=== PATIENT | male | born 1935 | race Caucasian/White ===

== ENCOUNTER 2017-01-25 00:16 | Emergency (ER) | payer MEDICARE ==
[2017-01-25] MEDS ORDERED: Ibuprofen TAB* 600 MG PO ONE (01:59)
[2017-01-25 02:53] LABS: Urine Bacteria Absent (Absent); Urine Bilirubin Negative (Negative); Urine Glucose Negative (Negative); Urine Nitrite Negative (Negative)
[2017-01-25] MEDS ORDERED: Sulfamethox/Trimethoprim DS 800/160* TAB PO ONE (03:40)
[2017-01-25 07:29] VITALS: BP 117/69
--- NOTE | 2017-01-25 07:48 | RAD ---
INDICATION: Cough and fever COMPARISON: Chest x-ray August 13, 2015 TECHNIQUE: PA and lateral dual-energy views were obtained. FINDINGS: Bones/Soft Tissues: There are no acute bony findings. Cardiomediastinal: The cardiomediastinal silhouette is normal. Lungs: There are no acute infiltrates. There are mild chronic basilar interstitial changes Pleura: There are no pleural effusions. Other: None IMPRESSION: No active disease.
--- NOTE | 2017-01-25 21:06 | ED ---
Shmuel Pedroza Billy, scribed for Ramon Andrea MD on 01/25/17 at 0140 . HPI Febrile Illness - HPI Summary HPI Summary: Patient is a 81 year-old male coming to [facility] for evaluation of 2 days of fever , tmax 103F. Fever improved with tylenol. He also reports chills and shaking with his fever. He also has a mild cough, but denies any other symptoms such as rhinorrhea, sore throat, myalgias, N/V/D, or urinary symptoms. His states that the patient has been sleeping and resting throughout the day for these last few days. - History of Current Complaint Chief Complaint: EDFever Time Seen by Provider: 01/25/17 00:42 Hx Obtained From: Patient Onset/Duration: Started Days Ago Timing: Intermittent Temperature: 103 F Initial Severity: Moderate Current Severity: Moderate Aggravating Factors: Nothing Alleviating Factors: OTC Medicine Associated Signs and Symptoms: Chills, Other: - shaking - Allergy/Home Medications Allergies/Adverse Reactions: Allergies Allergy/AdvReac Type Severity Reaction Status Date / Time No Known Allergies Allergy Verified 03/24/15 18:14 PMH/Surg Hx/FS Hx/Imm Hx Endocrine/Hematology History: Denies: Hx Diabetes Cardiovascular History: Denies: Hx Congestive Heart Failure - Surgical History Surgery Procedure, Year, and Place: Total hip - left, October 2013 Infectious Disease History: No Infectious Disease History: Denies: Traveled Outside the [place] in Last 30 Days - Family History Family History: Notable for uterine cancer in his sister, Parkinson's in his father, and Alzheimer's in his mother. - Social History Alcohol Use: Weekly Substance Use Type: Reports: None Smoking Status (MU): Never Smoked Tobacco Review of Systems Positive: Fever, Chills, Other - shakes Negative: Erythema Negative: Sore Throat Negative: Chest Pain Positive: Cough. Negative: Shortness Of Breath Negative: Vomiting, Nausea Negative: Arthralgia, Myalgia, Edema Negative: Rash All Other Systems Reviewed And Are Negative: Yes Physical Exam - Summary Physical Exam Summary: Constitutional: Well-developed, Well-nourished, Alert. (-) Distressed Skin: Warm, Dry HENT: Normocephalic; Atraumatic Eyes: Conjunctiva normal Neck: Musculoskeletal ROM normal neck. (-) JVD, (-) Stridor, (-) Tracheal deviation Cardio: Rhythm regular, rate normal, Heart sounds normal; Intact distal pulses; The pedal pulses are 2+ and symmetric. Radial pulses are 2+ and symmetric. (-) Murmur Pulmonary/Chest wall: Effort normal. Positive rhonchi in the bases. Abd: Soft, (-) Tenderness, (-) Distension, (-) Guarding, (-) Rebound Musculoskeletal: (-) Edema Lymph: (-) Cervical adenopathy Neuro: Alert, Oriented x3 Psych: Mood and affect Normal Triage Information Reviewed: Yes Vital Signs On Initial Exam: Initial Vitals Temp Pulse Resp BP Pulse Ox 99.3 F 115 15 112/81 96 01/25/17 00:17 01/25/17 00:17 01/25/17 00:17 01/25/17 00:17 01/25/17 00:17 Vital Signs Reviewed: Yes Diagnostics - Vital Signs Vital Signs Temp Pulse Resp BP Pulse Ox 01/25/17 00:20 99.3 F 110 15 112/81 96 01/25/17 00:17 99.3 F 115 15 112/81 96 - Laboratory Lab Statement: Any lab studies that have been ordered have been reviewed, and results considered in the medical decision making process. - Radiology CXR Xray Interpretation: No Acute Changes Radiology Interpretation Completed By: ED Physician - No significant change compared to previous CXR in 2015. Re-Evaluation - Re-Evaluation First Eval Re-Evaluation Time: 02:40 Comment: CXR results discussed. Second Eval Re-Evaluation Time: 03:43 Comment: Labs reviewed. Course/Dx - Course Assessment/Plan: 81 year-old male coming to the ED for evaluation of fever. In the ED course, patient was given ibuprofen and bactrim. UA positive for UTI. CXR shows no active disease. Patient will be discharged with bactrim to follow up with PCP. - Diagnoses Provider Diagnoses: UTI (urinary tract infection) Discharge - Discharge Plan Condition: Stable Disposition: HOME Prescriptions: Sulfamethox/Trimethoprim DS* [Bactrim DS 800/160 TAB*] 1 tab PO BID #14 tab Patient Education Materials: Urinary Tract Infection in Men (ED) Referrals: Hang Pringle MD [Primary Care Provider] - 1 Day The documentation as recorded by the Shmuel park Billy accurately reflects the service I personally performed and the decisions made by me, Ramon Andrea MD.
== END 2017-01-25 04:00 | disposition home or self-care (01) ==
LOC: ED 00:16
DX: N39.0 Urinary tract infection, site not specified (principal); R50.9 Fever, unspecified; R05 Cough
CPT/HCPCS: 71020; 81003; 81015; 87086; 87502; 99282; A9270-GY

== ENCOUNTER 2018-02-25 20:06 | Inpatient (IN) | payer MEDICARE ==
[2018-02-25] MEDS ORDERED: NS 0.9% 1000 ML*IV.FLUID IV ONE (20:36)
[2018-02-25 20:54] LABS: ABS Basophils 0.1 10^3/ul (0-0.2); ABS Eosinophils 0 10^3/ul (0-0.6); ABS Lymphocytes 0.6 10^3/ul (1.0-4.8); ABS Neutrophils 17.2 10^3/ul (1.5-7.7); ABS Nucleated RBC 0 10^3/ul; Eosinophil % 0.1 % (0-6); Hematocrit 41 % (42-52); Hemoglobin 14.2 g/dl (14.0-18.0); Lymphocyte % 3.3 % (25-47); Mean Corpuscular HGB Conc 35 g/dl (31-36); Mean Corpuscular Hemoglobin 33 pg (27-31); Mean Corpuscular Volume 96 fL (80-94); Mean Platelet Volume 7.3 um3 (7.4-10.4); Nucleated Red Blood Cells % 0; Platelet Count 256 10^3/ul (150-450); Red Cell Distribution Width 14 % (10.5-15)
[2018-02-25 20:59] LABS: INR 1.17 (0.77-1.02)
[2018-02-25 21:11] LABS: EGFR Non-African American 91.7 (>60)
--- NOTE | 2018-02-25 21:38 | RAD ---
Indication: Fever. 2 views of the chest demonstrates no mediastinal shift. Heart is of normal size and configuration. Linear discoid atelectasis or scarring in both lung bases are noted. When compared to previous exam of January 25, 2017 no significant change is noted. IMPRESSION: Bibasilar scarring or atelectasis without evidence of pneumonia.
[2018-02-25 22:33] LABS: Urine Appearance Cloudy; Urine Blood Negative (Negative); Urine Color Yellow; Urine Ketones Negative (Negative); Urine Protein Negative (Negative); Urine Specific Gravity 1.027 (1.010-1.030); Urine Urobilinogen Negative (Negative)
[2018-02-25] MEDS ORDERED: Acetaminophen TAB* 325 MG PO ONE (23:01)
--- NOTE | 2018-02-25 23:19 | ED ---
Martha Pedroza Gabriel, scribed Haja Stout MD on 02/25/18 at 2037 . HPI Febrile Illness - HPI Summary HPI Summary: This patient is a 82 year old M presenting to [facility] accompanied by his with a chief complaint of a fever that began this morning that is getting worse despite taking Tylenol all day. 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 He has been in bed all day and has had decreased appetite. Patients reports incontinence and flat affect. Patient denies FERGUSON, cold symptoms, cough, rhinorrhea, ABD pain, rashes, back pain, recent travel, and vomiting. No hx of CAD or cancer. No h/o tick bite. 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 - Allergy/Home Medications Allergies/Adverse Reactions: Allergies Allergy/AdvReac Type Severity Reaction Status Date / Time No Known Allergies Allergy Verified 02/25/18 20:54 PMH/Surg Hx/FS Hx/Imm Hx Endocrine/Hematology History: Denies: Hx Diabetes Cardiovascular History: Reports: Hx Hypertension - CONTROLLED WELL W/MEDS Denies: Hx Congestive Heart Failure Respiratory History: Denies: Hx Chronic Obstructive Pulmonary Disease (COPD) GI History: Denies: Hx Gastroesophageal Reflux Disease Psychiatric History: Denies: Hx Autism - Surgical History Surgery Procedure, Year, and Place: Total hip - left, October 2013 Infectious Disease History: No Infectious Disease History: Denies: Traveled Outside the [place] in Last 30 Days - Family History Known Family History: Negative: Hypertension, Renal Disease, Respiratory Disease Family History: Notable for uterine cancer in his sister, Parkinson's in his father, and Alzheimer's in his mother. - Social History Lives: With Family Alcohol Use: Weekly Substance Use Type: Reports: None Hx Tobacco Use: No Smoking Status (MU): Never Smoked Tobacco Review of Systems Positive: Fever, Fatigue, Other - decreased appetite Negative: Nasal Discharge Negative: Cough Negative: Abdominal Pain, Vomiting Positive: incontinence Musculoskeletal: Negative - back pain Negative: Rash Neurological: Other Negative: Headache Psychological: Other - flat affect All Other Systems Reviewed And Are Negative: Yes Physical Exam - Summary Physical Exam Summary: Appearance: Well-appearing, Well-nourished, lying in bed comfortably, pt does not appear altered Skin: Warm, dry, no obvious rash Eyes: sclera anicteric, no conjunctiva pallor, ENT: mucous membranes moist, pharynx appears normal, Neck: Supple, nontender Respiratory: Clear to auscultation, no signs of respiratory distress Cardiovascular: Normal S1, S2. No murmurs. Normal distal pulses in tibial and radial bilaterally. Abdomen: Soft, nontender, normal active bowel sounds present Musculoskeletal: Normal, Strength/ROM Intact Neurological: A&Ox3, awake and alert, mentation is normal, speech is fluent and appropriate Psychiatric: affect is normal, does not appearing anxious or depressed Triage Information Reviewed: Yes Vital Signs On Initial Exam: Initial Vitals Temp Pulse Resp BP Pulse Ox 104.5 F 112 18 128/69 93 02/25/18 20:13 02/25/18 20:13 02/25/18 20:13 02/25/18 20:13 02/25/18 20:13 Vital Signs Reviewed: Yes Diagnostics - Vital Signs Vital Signs Temp Pulse Resp BP Pulse Ox 02/25/18 20:13 104.5 F 112 18 128/69 93 - Laboratory Lab Results: Lab Results 02/25/18 02/25/18 02/25/18 Range/Units 20:48 20:48 20:48 WBC 19.0 H (3.5-10.8) 10^3/ul RBC 4.30 (4.0-5.4) 10^6/ul Hgb 14.2 (14.0-18.0) g/dl Hct 41 L (42-52) % MCV 96 H (80-94) fL MCH 33 H (27-31) pg MCHC 35 (31-36) g/dl RDW 14 (10.5-15) % Plt Count 256 (150-450) 10^3/ul MPV 7.3 L (7.4-10.4) um3 Neut % (Auto) 90.5 H (38-83) % Lymph % (Auto) 3.3 L (25-47) % Bowie % (Auto) 5.3 (0-7) % Eos % (Auto) 0.1 (0-6) % Baso % (Auto) 0.8 (0-2) % Absolute Neuts (auto) 17.2 H (1.5-7.7) 10^3/ul Absolute Lymphs (auto) 0.6 L (1.0-4.8) 10^3/ul Absolute Monos (auto) 1.0 H (0-0.8) 10^3/ul Absolute Eos (auto) 0 (0-0.6) 10^3/ul Absolute Basos (auto) 0.1 (0-0.2) 10^3/ul Absolute Nucleated RBC 0 10^3/ul Nucleated RBC % 0 INR (Anticoag Therapy) 1.17 H (0.77-1.02) Sodium 133 L (139-145) mmol/L Potassium 3.9 (3.5-5.0) mmol/L Chloride 100 L (101-111) mmol/L Carbon Dioxide 23 (22-32) mmol/L Anion Gap 10 (2-11) mmol/L BUN 14 (6-24) mg/dL Creatinine 0.81 (0.67-1.17) mg/dL Est GFR ( Amer) 117.9 (>60) Est GFR (Non-Af Amer) 91.7 (>60) BUN/Creatinine Ratio 17.3 (8-20) Glucose 146 H (70-100) mg/dL Lactic Acid (0.5-2.0) mmol/L Calcium 9.0 (8.6-10.3) mg/dL Total Bilirubin 0.80 (0.2-1.0) mg/dL AST 13 (13-39) U/L ALT 12 (7-52) U/L Alkaline Phosphatase 81 (34-104) U/L Total Protein 7.5 (6.4-8.9) g/dL Albumin 3.9 (3.2-5.2) g/dL Globulin 3.6 (2-4) g/dL Albumin/Globulin Ratio 1.1 (1-3) Urine Color Urine Appearance Urine pH (5-9) Ur Specific [place] (1.010-1.030) Urine Protein (Negative) Urine Ketones (Negative) Urine Blood (Negative) Urine Nitrate (Negative) Urine Bilirubin (Negative) Urine Urobilinogen (Negative) Ur Leukocyte Esterase (Negative) Urine Glucose (Negative) 02/25/18 02/25/18 Range/Units 20:48 22:04 WBC (3.5-10.8) 10^3/ul RBC (4.0-5.4) 10^6/ul Hgb (14.0-18.0) g/dl Hct (42-52) % MCV (80-94) fL MCH (27-31) pg MCHC (31-36) g/dl RDW (10.5-15) % Plt Count (150-450) 10^3/ul MPV (7.4-10.4) um3 Neut % (Auto) (38-83) % Lymph % (Auto) (25-47) % Bowie % (Auto) (0-7) % Eos % (Auto) (0-6) % Baso % (Auto) (0-2) % Absolute Neuts (auto) (1.5-7.7) 10^3/ul Absolute Lymphs (auto) (1.0-4.8) 10^3/ul Absolute Monos (auto) (0-0.8) 10^3/ul Absolute Eos (auto) (0-0.6) 10^3/ul Absolute Basos (auto) (0-0.2) 10^3/ul Absolute Nucleated RBC 10^3/ul Nucleated RBC % INR (Anticoag Therapy) (0.77-1.02) Sodium (139-145) mmol/L Potassium (3.5-5.0) mmol/L Chloride (101-111) mmol/L Carbon Dioxide (22-32) mmol/L Anion Gap (2-11) mmol/L BUN (6-24) mg/dL Creatinine (0.67-1.17) mg/dL Est GFR ( Amer) (>60) Est GFR (Non-Af Amer) (>60) BUN/Creatinine Ratio (8-20) Glucose (70-100) mg/dL Lactic Acid 1.3 (0.5-2.0) mmol/L Calcium (8.6-10.3) mg/dL Total Bilirubin (0.2-1.0) mg/dL AST (13-39) U/L ALT (7-52) U/L Alkaline Phosphatase (34-104) U/L Total Protein (6.4-8.9) g/dL Albumin (3.2-5.2) g/dL Globulin (2-4) g/dL Albumin/Globulin Ratio (1-3) Urine Color Yellow Urine Appearance Cloudy Urine pH 5.0 (5-9) Ur Specific [place] 1.027 (1.010-1.030) Urine Protein Negative (Negative) Urine Ketones Negative (Negative) Urine Blood Negative (Negative) Urine Nitrate Negative (Negative) Urine Bilirubin Negative (Negative) Urine Urobilinogen Negative (Negative) Ur Leukocyte Esterase Negative (Negative) Urine Glucose Negative (Negative) Result Diagrams: 02/25/18 20:48 02/25/18 20:48 Lab Statement: Any lab studies that have been ordered have been reviewed, and results considered in the medical decision making process. - Radiology CXR Radiology Interpretation Completed By: Radiologist - Bibasilar scarring or atelectasis without evidence of pneumonia. ED physician has reviewed this report. Course/Dx - Course Assessment/Plan: This is an elderly community dwelling generally healthy man with acute fever and new onset urinary incontinence associated with some malaise and fatigue. There are no other localizing signs of infection, and lab findings are negative for pneumonia, UTI. I have ordered influenza testing, though antigen assay in this circumstance is not very accurate; he certainly could have influenza given abrupt onset of symptoms and lack of obvious bacterial source. He has no meningeal signs. I favor admitting patient to hospital for observation pending blood cultures, likely should have empiric antibiotic therapy in the interim but I will leave that to the discretion of the admitting physician. - Diagnoses Provider Diagnoses: Fever, Urinary incontinence - Provider Notifications Discussed Care Of Patient With: David Sunshine Time Discussed With Above Provider: 22:44 Instructed by Provider To: Admit As Inpatient Discharge - Sign-Out/Discharge Documenting (check all that apply): Discharge/Admit/Transfer - admitted - Discharge Plan Condition: Fair Disposition: ADMITTED TO [facility] Referrals: Hang Pringle MD [Primary Care Provider] - - Billing Disposition and Condition Condition: FAIR Disposition: [facility] The documentation as recorded by the Martha park Gabriel accurately reflects the service I personally performed and the decisions made by , Haja Matute MD.
[2018-02-26] MEDS: cefTRIAXone(*) 1 GM in NS 0.9% 50 ML* 50 ML IVPB SCH (01:25)
[2018-02-26 06:20] LABS: ABS Basophils 0.1 10^3/ul (0-0.2); ABS Eosinophils 0 10^3/ul (0-0.6); ABS Lymphocytes 0.7 10^3/ul (1.0-4.8); ABS Monocytes 1.2 10^3/ul (0-0.8); ABS Neutrophils 16.8 10^3/ul (1.5-7.7); ABS Nucleated RBC 0 10^3/ul; Eosinophil % 0 % (0-6); Hematocrit 37 % (42-52); Hemoglobin 12.8 g/dl (14.0-18.0); Lymphocyte % 3.8 % (25-47); Mean Corpuscular HGB Conc 35 g/dl (31-36); Mean Corpuscular Hemoglobin 33 pg (27-31); Mean Corpuscular Volume 96 fL (80-94); Mean Platelet Volume 7.2 um3 (7.4-10.4); Nucleated Red Blood Cells % 0; Platelet Count 224 10^3/ul (150-450); Red Blood Count 3.84 10^6/ul (4.0-5.4); Red Cell Distribution Width 14 % (10.5-15); White Blood Count 18.9 10^3/ul (3.5-10.8)
--- NOTE | 2018-02-26 06:36 | HP ---
HISTORY AND PHYSICAL: DATE OF ADMISSION: 02/25/18. ADMITTING PROVIDER: David Sunshine MD. PRIMARY CARE PROVIDER: Hang Pringle MD. CHIEF COMPLAINT: Fevers, fatigue. HISTORY OF PRESENT ILLNESS: Ernesto Gordon is an 82-year-old male with a past medical history of hypertension, who was in his normal state of health until the morning of admission when he started to develop fevers that gradually progressively increased to as high as 103. He felt generalized fatigue. He otherwise was without complaints though he was incontinent of urine twice, which is slightly unusual for him. He is having increased frequency of urination for a few months now. He denies any headaches, neck stiffness, rashes , recent travel, sick contacts, cough, chest pain, shortness of breath, swelling in the legs. [place] [facility], he had an elevated white count at 19.0, fevers of 104.5. He had a negative influenza swab. Chest x-ray, which showed bibasilar scarring versus atelectasis and urinalysis was within normal limits. He has a left shift, Neutrophils which were 90.5%, CRP of 58.8, and his initial heart rate was in 110s. He got sepsis bolus of fluid in the emergency room. He has been referred to hospitalist service for fever of unknown origin and systemic inflammatory response syndrome. PAST MEDICAL HISTORY: Hypertension, previous workup with Dr. Juarez for mild anemia back in April of 2016. Thyroid nodules. MEDICATIONS: Include: 1. Lisinopril 20 mg daily. 2. Amlodipine 10 mg daily. 3. Simvastatin 20 mg daily. 4. Aspirin 81 mg daily. ALLERGIES: No known drug allergies. FAMILY HISTORY: Mother with Alzheimer's disease. Father with Parkinson's disease. SOCIAL HISTORY: The patient is never a smoker. Former "moderate drinker". Retired, formerly worked in public [employer] in [facility] area. He desires to be FULL code. Medical Surrogate is Maribel Gordon REVIEW OF SYSTEMS: A complete 14-point review of systems negative except as per HPI. Main complaints are grogginess generalized weakness, fevers. Has complained of increased frequency of urination for few months. Denies any dysuria. Two episodes of urinary incontinence today. No musculoskeletal pain. He has two papular rashes on his bilateral medial knees, for which he has followed with the honing machine operator tool approximately a year ago and they are nonpruritic. PHYSICAL EXAMINATION GENERAL APPEARANCE: No acute distress, sitting in the hospital bed. VITAL SIGNS: Initial temperature 104.5, pulse rate 112, satting 94% on room air , respiratory rate 18 to 25, blood pressure 120/69. HEENT: Normocephalic, atraumatic. Pupils are equal, round and reactive to light. Extraocular motions intact. No scleral icterus. No oropharynx lesions. NECK: Supple. RESPIRATORY: Lungs clear to auscultation bilaterally with no wheezing, rales, or rhonchi. CARDIOVASCULAR: Regular rate and rhythm. No murmurs, rubs or gallops. ABDOMEN: Soft, nontender, and nondistended. EXTREMITIES: Warm and well perfused. No peripheral edema. NEUROLOGIC: Cranial nerves II through XII intact. Moving all extremities. Commercial Banker strength 5/5. Hip flexion 5/5. Sensation is intact. SKIN: [place] papular rash scant on bilateral medial aspects of the knees near the medial meniscus. LABORATORY DATA: White count 19.0, hematocrit 41, hemoglobin 14.2, platelets 256, neutrophil percentage 90.5, ESR 36, INR 1.17. Sodium 133, potassium 3.9, chloride 100, carbon dioxide 23, BUN 14, creatinine 0.81, glucose 146, lactic acid 1.3, total bili 0.8, AST 13, ALT 12, alk phos 81, CRP 58.8, albumin 3.9, procalcitonin 0.2. Urinalysis within normal limits. Influenza swab is negative for A and B. IMAGING: Chest x-ray with bibasilar scarring versus atelectasis without evidence of pneumonia. ASSESSMENT AND PLAN: Ernesto Gordon is an 82-year-old male with past medical history of hypertension presenting with fevers, tachycardia, generalized weakness, urinary incontinence x2 and increased frequency of urination times few months, has leukocytosis of 19.0. High fevers to 104.5. He is being admitted for SIRS of unknown origin. He is nontoxic appearing. I suspect this may be a viral process. I will start him empirically on ceftriaxone tonight and follow up with a CBC in the morning. We will add on a Lyme antibody with reflex western blot is indicated. He does attest of being outdoors frequently, but denies any rashes, target lesions, etc. No recent travel, no cough. I will add on the A1c for his hyperglycemia and increased frequency of urination over the last several months. He is being admitted to observation status. He is a full code. Medical surrogate is , Maribel Gordon. Eat a heart-healthy diet. Continue his aspirin 81 mg daily, atorvastatin 20 mg daily for hyperlipidemia. His blood pressures are currently 101/58. I am going to hold his lisinopril 20 and amlodipine 10 for now. Titrate back as necessary in the setting of possible infection. On review of past records, he has an ultrasound of the thyroid back in June of 2016 showed several bilateral thyroid nodules with dominant nodule in the inferior portion of the right thyroid had increased in size at that time and recommended fine needle aspiration for further evaluation. I will add on thyroid studies. [id number]/[facility] #: [id number] YOBANI
[2018-02-26] MEDS: Aspirin EC TAB* 81 MG TAB.EC PO SCH (08:00)
[2018-02-26] MEDS: Atorvastatin* 20 MG TAB PO SCH (08:00)
--- NOTE | 2018-02-26 08:23 | PN ---
Subjective Date of Service: 02/26/18 Interval History: Feels well. No chills or sweats. Appetite OK. No pain. No BM here yet. Objective Active Medications: Aspirin (Aspirin Ec Tab*) 81 mg PO DAILY [facility] Last Admin: 02/26/18 08:00 Dose: 81 mg Atorvastatin Calcium (Lipitor*) 20 mg PO DAILY [facility] Last Admin: 02/26/18 08:00 Dose: 20 mg Ceftriaxone Sodium 1 gm/ (Sodium Chloride) 50 mls @ 200 mls/hr IVPB Q24H [facility] Last Admin: 02/26/18 01:25 Dose: 200 mls/hr Vital Signs - 8 hr 02/26/18 02/26/18 02/26/18 03:13 07:09 08:00 Temperature 98.3 F 98.1 F Pulse Rate 82 93 Respiratory 22 21 Rate Blood Pressure 136/63 116/87 (mmHg) O2 Sat by Pulse 98 92 99 Oximetry Oxygen Devices in Use Now: None Appearance: Alert, partly up in bed. Eyes: No Scleral Icterus Respiratory: Symmetrical Chest Expansion and Respiratory Effort, Clear to Auscultation, Clear to Percussion Cardiovascular: NL Sounds; No Murmurs; No JVD, RRR, No Edema, - Extremities: No Edema, No Clubbing, Cyanosis, - Skin: No Nodules or Sclerosis, - - multiple 0.5 cm palpable brown areas medial both lower thighs. Neurological: Alert and Oriented x 3, NL Sensation Result Diagrams: 02/26/18 06:14 02/25/18 20:48 Additional Lab and Data: Lab Results 02/25/18 02/25/18 02/25/18 Range/Units 20:48 20:48 20:48 WBC 19.0 H (3.5-10.8) 10^3/ul RBC 4.30 (4.0-5.4) 10^6/ul Hgb 14.2 (14.0-18.0) g/dl Hct 41 L (42-52) % MCV 96 H (80-94) fL MCH 33 H (27-31) pg MCHC 35 (31-36) g/dl RDW 14 (10.5-15) % Plt Count 256 (150-450) 10^3/ul MPV 7.3 L (7.4-10.4) um3 Neut % (Auto) 90.5 H (38-83) % Lymph % (Auto) 3.3 L (25-47) % [place] % (Auto) 5.3 (0-7) % Eos % (Auto) 0.1 (0-6) % Baso % (Auto) 0.8 (0-2) % Absolute Neuts (auto) 17.2 H (1.5-7.7) 10^3/ul Absolute Lymphs (auto) 0.6 L (1.0-4.8) 10^3/ul Absolute Monos (auto) 1.0 H (0-0.8) 10^3/ul Absolute Eos (auto) 0 (0-0.6) 10^3/ul Absolute Basos (auto) 0.1 (0-0.2) 10^3/ul Absolute Nucleated RBC 0 10^3/ul Nucleated RBC % 0 INR (Anticoag Therapy) 1.17 H (0.77-1.02) Sodium 133 L (139-145) mmol/L Potassium 3.9 (3.5-5.0) mmol/L Chloride 100 L (101-111) mmol/L Carbon Dioxide 23 (22-32) mmol/L Anion Gap 10 (2-11) mmol/L BUN 14 (6-24) mg/dL Creatinine 0.81 (0.67-1.17) mg/dL Est GFR ( Amer) 117.9 (>60) Est GFR (Non-Af Amer) 91.7 (>60) BUN/Creatinine Ratio 17.3 (8-20) Glucose 146 H (70-100) mg/dL Lactic Acid (0.5-2.0) mmol/L Calcium 9.0 (8.6-10.3) mg/dL Total Bilirubin 0.80 (0.2-1.0) mg/dL AST 13 (13-39) U/L ALT 12 (7-52) U/L Alkaline Phosphatase 81 (34-104) U/L Total Protein 7.5 (6.4-8.9) g/dL Albumin 3.9 (3.2-5.2) g/dL Globulin 3.6 (2-4) g/dL Albumin/Globulin Ratio 1.1 (1-3) Urine Color Urine Appearance Urine pH (5-9) Ur Specific Douglas (1.010-1.030) Urine Protein (Negative) Urine Ketones (Negative) Urine Blood (Negative) Urine Nitrate (Negative) Urine Bilirubin (Negative) Urine Urobilinogen (Negative) Ur Leukocyte Esterase (Negative) Urine Glucose (Negative) 02/25/18 02/25/18 Range/Units 20:48 22:04 WBC (3.5-10.8) 10^3/ul RBC (4.0-5.4) 10^6/ul Hgb (14.0-18.0) g/dl Hct (42-52) % MCV (80-94) fL MCH (27-31) pg MCHC (31-36) g/dl RDW (10.5-15) % Plt Count (150-450) 10^3/ul MPV (7.4-10.4) um3 Neut % (Auto) (38-83) % Lymph % (Auto) (25-47) % [place] % (Auto) (0-7) % Eos % (Auto) (0-6) % Baso % (Auto) (0-2) % Absolute Neuts (auto) (1.5-7.7) 10^3/ul Absolute Lymphs (auto) (1.0-4.8) 10^3/ul Absolute Monos (auto) (0-0.8) 10^3/ul Absolute Eos (auto) (0-0.6) 10^3/ul Absolute Basos (auto) (0-0.2) 10^3/ul Absolute Nucleated RBC 10^3/ul Nucleated RBC % INR (Anticoag Therapy) (0.77-1.02) Sodium (139-145) mmol/L Potassium (3.5-5.0) mmol/L Chloride (101-111) mmol/L Carbon Dioxide (22-32) mmol/L Anion Gap (2-11) mmol/L BUN (6-24) mg/dL Creatinine (0.67-1.17) mg/dL Est GFR ( Amer) (>60) Est GFR (Non-Af Amer) (>60) BUN/Creatinine Ratio (8-20) Glucose (70-100) mg/dL Lactic Acid 1.3 (0.5-2.0) mmol/L Calcium (8.6-10.3) mg/dL Total Bilirubin (0.2-1.0) mg/dL AST (13-39) U/L ALT (7-52) U/L Alkaline Phosphatase (34-104) U/L Total Protein (6.4-8.9) g/dL Albumin (3.2-5.2) g/dL Globulin (2-4) g/dL Albumin/Globulin Ratio (1-3) Urine Color Yellow Urine Appearance Cloudy Urine pH 5.0 (5-9) Ur Specific Douglas 1.027 (1.010-1.030) Urine Protein Negative (Negative) Urine Ketones Negative (Negative) Urine Blood Negative (Negative) Urine Nitrate Negative (Negative) Urine Bilirubin Negative (Negative) Urine Urobilinogen Negative (Negative) Ur Leukocyte Esterase Negative (Negative) Urine Glucose Negative (Negative) Microbiology and Other Data: Microbiology 02/25/18 23:10 Influenza Types A,B Antigen (HUEY) - Final Nasopharyngeal Specimen received for Influenza A/B Molecular testing Assess/Plan/Problems-Billing Assessment: - Patient Problems (1) Fever Current Visit: Yes Status: Acute Code(s): R50.9 - FEVER, UNSPECIFIED SNOMED Code(s): 650662207 Comment: No focal sx's. Now better. Note nl procalcitonin. Continue IV ceftriaxone 1 more day, consider d/c 02/27 if BCS neg. (2) HTN (hypertension) Current Visit: Yes Status: Acute Code(s): I10 - ESSENTIAL (PRIMARY) HYPERTENSION SNOMED Code(s): 03061641 Comment: Hold lisinopril, resume amlodipine. (3) Thyroid nodule Current Visit: Yes Status: Acute Code(s): E04.1 - NONTOXIC SINGLE THYROID NODULE SNOMED Code(s): 182197149 Comment: Pt states Dr. Monroe recommended a bx. I encouraged pt to fup with this.
[2018-02-26] MEDS: amLODIPine TAB* 5 MG PO SCH (09:27)
[2018-02-26] MEDS ORDERED: Acetaminophen TAB* 325 MG PO PRN (15:36)
[2018-02-27] MEDS: cefTRIAXone(*) 1 GM in NS 0.9% 50 ML* 50 ML IVPB SCH (02:30)
[2018-02-27 05:53] LABS: ABS Basophils 0 10^3/ul (0-0.2); ABS Eosinophils 0.1 10^3/ul (0-0.6); ABS Monocytes 1.2 10^3/ul (0-0.8); ABS Neutrophils 11.3 10^3/ul (1.5-7.7); ABS Nucleated RBC 0 10^3/ul; Eosinophil % 0.5 % (0-6); Hematocrit 38 % (42-52); Hemoglobin 12.6 g/dl (14.0-18.0); Lymphocyte % 7.6 % (25-47); Mean Corpuscular HGB Conc 34 g/dl (31-36); Mean Corpuscular Hemoglobin 33 pg (27-31); Mean Corpuscular Volume 97 fL (80-94); Mean Platelet Volume 7.6 um3 (7.4-10.4); Nucleated Red Blood Cells % 0; Platelet Count 201 10^3/ul (150-450); Red Blood Count 3.88 10^6/ul (4.0-5.4); Red Cell Distribution Width 14 % (10.5-15); White Blood Count 13.5 10^3/ul (3.5-10.8)
[2018-02-27] MEDS: amLODIPine TAB* 5 MG PO SCH (08:52)
[2018-02-27] MEDS: Atorvastatin* 20 MG TAB PO SCH (08:52)
[2018-02-27] MEDS: Aspirin EC TAB* 81 MG TAB.EC PO SCH (08:52)
[2018-02-27 11:02] VITALS: BP 126/63
[2018-02-27] MEDS ORDERED: diPHENhydraMINE PO* 25 MG PO PRN (11:40)
--- NOTE | 2018-02-27 11:48 | PN ---
Progress Note - Progress Note Date of Service: 02/27/18 Note: Time spent on discharge 45 minutes.
[2018-02-27] MEDS ORDERED: ceFUROXime TAB(*) 250 MG PO SCH (21:00)
--- NOTE | 2018-02-28 03:49 | DS ---
CC: Dr. Pringle DISCHARGE SUMMARY: DATE OF ADMISSION: 02/26/18 DATE OF DISCHARGE: 02/27/18 HISTORY: This 32-year-old man presented with fever and fatigue. The history is detailed in the admi ssion note. The patient did complain of some urinary incontinence for several months. His urinalysis was unremar kable. He had leukocytosis. His temperature was 104.5. There was a suspicion of a viral process. H e was started on ceftriaxone. Urinalysis was unremarkable. Three blood cultures were drawn and all n o growth at the time of this dictation. A Lyme serology was sent and the results are pending at the time of this dictation. The patient's chest x-ray showed bibasilar scarring or atelectasis, but no e vidence of pneumonia. The patient has improved clinically markedly. His temperature gradually came down. It was 102.1 on t he second hospital day. His will check his temperatures 3 times a day. I told her to expect it to rise in the evening, but the peak temperature to gradually decrease every day. On the day of discharge, the patient had a slightly pruritic well-defined rash bilateral temples and much of his scalp and some of his face. I believe this is most likely a reaction to the ceftriaxone. He is not going to get any further antibiotic at home. He will take diphenhydramine p.r.n. for itching. A bladder scan for postvoid residual will be done before discharge. FINAL DIAGNOSES: 1. Febrile illness, likely viral. 2. Urinary incontinence. 3. Hypertension. 4. Thyroid nodule. MEDICATIONS ON DISCHARGE: 1. Simvastatin 20 mg daily 2. Aspirin 1 daily. 3. Diclofenac 100 mg daily. 4. Nasal gel as prescribed. 5. Amlodipine 10 mg daily. 6. Diphenhydramine 25 mg every 6 hours p.r.n. Lisinopril has been discontinued. [id number]/[facility] #: [id number]
== END 2018-02-27 12:45 | disposition home or self-care (01) | DRG 866 ==
LOC: ED 20:06 → MED 22:54 → OBSVTOIN 02-26 09:00
PROVIDERS: ADMIT Internal Medicine; ATTEND Internal Medicine
DX: B34.9 Viral infection, unspecified (principal); R65.10 Systemic inflammatory response syndrome (SIRS) of non-infectious origin without acute organ dysfunction; R50.9 Fever, unspecified; R32 Unspecified urinary incontinence; I10 Essential (primary) hypertension; E04.1 Nontoxic single thyroid nodule; L27.1 Localized skin eruption due to drugs and medicaments taken internally; T36.1X5A Adverse effect of cephalosporins and other beta-lactam antibiotics, initial encounter; Y92.230 Patient room in hospital as the place of occurrence of the external cause; X58.XXXA Exposure to other specified factors, initial encounter; Z79.82 Long term (current) use of aspirin; Z79.899 Other long term (current) drug therapy; Z84.89 Family history of other specified conditions
CPT/HCPCS: 36415; 71046; 80053; 81003; 83036; 83605; 84145; 84439; 84443; 84479; 85025; 85610; 85652; 86140; 86617; 87040; 87502; 99284; A9270-GY; J0696

== ENCOUNTER 2018-05-09 10:32 | Inpatient (IN) | payer MEDICARE ==
[2018-05-09] MEDS ORDERED: NS 0.9% 1000 ML* 1,000 ML IV ONE (10:52)
--- NOTE | 2018-05-09 10:54 | ED ---
Dizziness - HPI Summary HPI Summary: This is vivian Mandel documenting for attending Olman Aquino M.D. Patient is a 82 y/o M w/ c/o dizziness onsetting today this morning. He reports that after a bowel movement, he got up and felt dizzy to the point where he needed to brace himself to stay standing. He states this severe dizziness lasted around a minute. Later in the day, while going to a mailbox to mail a letter, he almost fell down due to dizziness. Afterwards, he reports being in a car with his "head in between his knees" and came to the ED. Patient denies chest pain, SOB, FERGUSON, abdominal pain, N/V/D, LE edema, and blurred vision. On triage, nothing is noted to aggravate/alleviate Sx. He reports no similar previous episodes. Patient has Hx of HTN and HLD. He also reports a 105 fever two months ago. Home medications and allergies noted. - History Of Current Complaint Chief Complaint: EDDizziness Stated Complaint: DIZZINESS Time Seen by Provider: 05/09/18 10:42 Hx Obtained From: Patient Timing: Frequency Of Episodes - 2; first episode was reported to be a minute long, the second lasted several minutes Severity Initially: Severe - first episode is described as severe Severity Currently: Moderate Character: Dizzy - first episode was reported to be a minute long Aggravating Factor(s): Nothing Alleviating Factor(s): Nothing Associated Signs And Symptoms: Positive: Other: - NEGATIVE: FERGUSON, abdominal pain, LE edema. Negative: Nausea, Vomiting, Diarrhea, Chest Pain, SOB, Visual Changes - Allergies/Home Medications Allergies/Adverse Reactions: Allergies Allergy/AdvReac Type Severity Reaction Status Date / Time No Known Allergies Allergy Verified 02/25/18 20:54 Home Medications: Home Medications Lisinopril TAB* [Prinivil TAB*] 20 mg PO DAILY 05/09/18 [History Confirmed 05/09] Simvastatin TAB(NF) [Zocor(NF)] 20 mg PO DAILY 05/09/18 [History Confirmed 05/09] amLODIPine TAB* [Norvasc 5 mg TAB*] 10 mg PO DAILY 05/09/18 [History Confirmed 05/09/18] diPHENhydraMINE PO* [Benadryl PO 25 MG TAB*] 25 mg PO BEDTIME PRN 05/09/18 [ History Confirmed 05/09/18] PMH/Surg Hx/FS Hx/Imm Hx Endocrine/Hematology History: Denies: Hx Diabetes Cardiovascular History: Reports: Hx Hypertension - CONTROLLED WELL W/MEDS Denies: Hx Congestive Heart Failure Respiratory History: Denies: Hx Chronic Obstructive Pulmonary Disease (COPD) GI History: Denies: Hx Gastroesophageal Reflux Disease Sensory History: Reports: Hx Contacts or Glasses Denies: Hx Hearing Aid Opthamlomology History: Reports: Hx Contacts or Glasses Psychiatric History: Denies: Hx Autism - Surgical History Surgery Procedure, Year, and Place: Total hip - left, October 2013 - Immunization History Date of Tetanus Vaccine: utd Date of Influenza Vaccine: utd Infectious Disease History: No Infectious Disease History: Denies: Traveled Outside the [place] in Last 30 Days - Family History Known Family History: Negative: Hypertension, Renal Disease, Respiratory Disease Family History: Notable for uterine cancer in his sister, Parkinson's in his father, and Alzheimer's in his mother. - Social History Alcohol Use: Occasionally Substance Use Type: Reports: None Hx Tobacco Use: No Smoking Status (MU): Never Smoked Tobacco Review of Systems Positive: Other - NEGATIVE: blurred vision Negative: Chest Pain Negative: Shortness Of Breath Negative: Abdominal Pain, Vomiting, Diarrhea, Nausea Positive: Other - NEGATIVE: LE edema Neurological: Other - POSITIVE: Dizziness Negative: Headache All Other Systems Reviewed And Are Negative: Yes Physical Exam - Summary Physical Exam Summary: GENERAL: Patient is a well developed and nourished male who is lying comfortable in the stretcher. Patient is not in any acute respiratory distress. HEAD AND FACE: No signs of trauma. No ecchymosis, hematomas or skull depressions. No sinus tenderness. EYES: PERRLA, EOMI x 2, No injected conjunctiva, no nystagmus. No photophobia. EARS: Hearing grossly intact. Ear canals and tympanic membranes are within normal limits. MOUTH: Oropharynx within normal limits. NECK: Supple, trachea is midline, no adenopathy, no JVD, no carotid bruit, no c- spine tenderness, neck with full ROM. No meningeal signs, no Kernig's or brudzinskis signs. CHEST: Symmetric, no tenderness at palpation LUNGS: Clear to auscultation bilaterally. No wheezing or crackles. CVS: Regular rate and rhythm, S1 and S2 present, no murmurs or gallops appreciated. ABDOMEN: Soft, non-tender. No signs of distention. No rebound no guarding, and no masses palpated. Bowel sounds are normal. EXTREMITIES: FROM in all major joints, no edema, no cyanosis or clubbing. NEURO: Alert and oriented x 3. No acute neurological deficits. Speech is normal and follows commands. GCS score: 15 SKIN: Dry and warm Triage Information Reviewed: Yes Vital Signs On Initial Exam: Initial Vitals Temp Pulse Resp BP Pulse Ox 97.7 F 70 17 111/69 98 05/09/18 10:35 05/09/18 10:35 05/09/18 10:35 05/09/18 10:35 05/09/18 10:35 Vital Signs Reviewed: Yes Diagnostics - Vital Signs Vital Signs Temp Pulse Resp BP Pulse Ox 05/09/18 10:35 97.7 F 70 17 111/69 98 - Laboratory Result Diagrams: 05/09/18 11:01 05/09/18 11:01 Lab Statement: Any lab studies that have been ordered have been reviewed, and results considered in the medical decision making process. - Radiology CXR Xray Interpretation: No Acute Changes Radiology Interpretation Completed By: Radiologist - Low lung volumes, small bibasilar infiltrates suggestive of atelectasis similar to the prior study. This report was reviewed by ED physician. - CT CT Head CT Interpretation: No Acute Changes CT Interpretation Completed By: Radiologist - No acute intracranial pathology. This report was reviewed by ED physician. - EKG 1108 Cardiac Rate: Tachycardia - Rate of 125 BPM EKG Rhythm: Atrial Fibrillation EKG Interpretation: ST elevation; this EKG is different than one taken 01/18/15 which was normal Re-Evaluation - Re-Evaluation First Eval Re-Evaluation Time: 11:10 Comment: went to see to discuss EKG; patient is currently fine in bed. heart rate between 120-150 Dizzy Course/Dx - Course Assessment/Plan: This patient is an 82-year-old male who presents to the emergency department with a chief complaint having dizziness. Patient reports that he had a bowel movement and afterwards the patient to became dizzy. It lasted for approximately 10 minutes and resolved. Patient went out to do some errands and he developed neck and dizziness. He is going to pass out. He denies any chest patients develop palpitations. Patient has past medical history significant for hypertension and dyslipidemia. Blood test results without any significant abnormality except for what was a count of 11.2, is a normocytic normochromic anemia, glucose of 129, BNP of 351. In the ED course and the patient was given copious and since the patient is a negative fibrillation with RVR has any onset of A. fib. The patient continued to have a heart rate ranging between 120 - 134 the patient will be placed in the Cardizem drip. Chest x-ray impression: Low lumbar, small bilateral infiltrates suggestive of atelectasis similar to a prior study. Head CT impression: No acute intracranial pathology. At this time I discussed my physical exam, findings and test results with Dr. Asencio from the hospitalist services who accepted the patient for admission. At this time the patient is hemodynamically stable alert and 3. - Diagnoses Provider Diagnoses: Atrial fibrillation with RVR - Provider Notifications Discussed Care Of Patient With: Micki Asencio Time Discussed With Above Provider: 11:56 Instructed by Provider To: Other - Patient was discussed with Dr. Asencio. Dr. Asnecio accepts patient for admission. - Critical Care Time Critical Care Time: 75-104 min Discharge - Sign-Out/Discharge Documenting (check all that apply): Patient Departure - admit - Discharge Plan Condition: Stable Disposition: ADMITTED TO [facility]
[2018-05-09] MEDS ORDERED: Diltiazem IV VIAL* 5 MG/ML 10 ML VIAL IV SLOW PU ONE (11:13)
[2018-05-09 11:17] LABS: ABS Basophils 0.1 10^3/ul (0-0.2); ABS Eosinophils 0.1 10^3/ul (0-0.6); ABS Lymphocytes 1.3 10^3/ul (1.0-4.8); ABS Monocytes 0.6 10^3/ul (0-0.8); ABS Neutrophils 9.1 10^3/ul (1.5-7.7); ABS Nucleated RBC 0 10^3/ul; Eosinophil % 0.9 % (0-6); Hematocrit 40 % (42-52); Hemoglobin 13.3 g/dl (14.0-18.0); Lymphocyte % 11.6 % (25-47); Mean Corpuscular HGB Conc 34 g/dl (31-36); Mean Corpuscular Hemoglobin 33 pg (27-31); Mean Corpuscular Volume 97 fL (80-94); Mean Platelet Volume 7.1 um3 (7.4-10.4); Nucleated Red Blood Cells % 0.1; Platelet Count 311 10^3/ul (150-450); Red Blood Count 4.08 10^6/ul (4.00-5.40); Red Cell Distribution Width 14 % (10.5-15); White Blood Count 11.2 10^3/ul (3.5-10.8)
[2018-05-09] MEDS ORDERED: Diltiazem IV* 5 MG/ML 5 ML VIAL (for loading dose/IV Push) (25 MG) IV PUSH ONE (11:25)
[2018-05-09 11:35] LABS: EGFR Non-African American 98.7 (>60)
[2018-05-09] MEDS ORDERED: Diltiazem DRIP* 100 MG/100 ML ADDV.BAG IVPB ONE (11:56)
--- NOTE | 2018-05-09 11:59 | RAD ---
HISTORY: dizziness COMPARISONS: None TECHNIQUE: Multiple contiguous axial CT scans were obtained of the head without intravenous contrast. FINDINGS: HEMORRHAGE/INFARCT: There is no hemorrhage or acute infarct. MASSES/SHIFT: There is no mass or shift. EXTRA-AXIAL SPACES: There are no extra-axial fluid collections. SULCI AND VENTRICLES: There is diffuse and proportional enlargement of the sulci and ventricles. CEREBRUM: There are no focal parenchymal abnormalities. BRAINSTEM: There are no focal parenchymal abnormalities. CEREBELLUM: There are no focal parenchymal abnormalities. VESSELS: The vessels are grossly normal. PARANASAL SINUSES: There is post surgical change to the paranasal sinuses. There is mucosal thickening. ORBITS: The orbits are unremarkable. BONES AND SOFT TISSUE: No bone or soft tissue abnormalities are noted. OTHER: None IMPRESSION: NO ACUTE INTRACRANIAL PATHOLOGY.
--- NOTE | 2018-05-09 12:27 | RAD ---
INDICATION: Dizziness. COMPARISON: Comparison is made with a prior study from May 28, 2018. TECHNIQUE: Dual-energy PA and lateral views of the chest were obtained. FINDINGS: The heart is within normal limits in size. Mediastinal and hilar contours appear within normal limits. The lungs are underinflated, there are small bibasilar infiltrates suggestive of atelectasis. No pleural effusion is seen. IMPRESSION: LOW LUNG VOLUMES, SMALL BIBASILAR INFILTRATES SUGGESTIVE OF ATELECTASIS SIMILAR TO THE PRIOR STUDY.
[2018-05-09] MEDS ORDERED: Perflutren Lipid Microsphere* 3 ML VIAL ONE (14:09)
[2018-05-09] MEDS: NS 0.9% 1000 ML* 1,000 ML IV SCH (14:47)
--- NOTE | 2018-05-09 16:46 | HP ---
CC: Dr. Pringle * HISTORY AND PHYSICAL: DATE OF ADMISSION: 05/09/18 PRIMARY CARE PROVIDER: Dr. Pringle. CHIEF COMPLAINT: Dizziness. HISTORY OF PRESENT ILLNESS: Mr. Gordon is an 82-year-old male, who has a history of hypertension and thyroid nodules, who presents to the emergency room with complaints of dizziness. The patient states that this morning after having a bowel movement, he stood up from the toilet and felt very dizzy. He states that the dizziness subsided; however, never completely went away. 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 Getting out of the car, he states that he felt incredibly dizzy again and almost fell down. He denies ever having anything like this in the past. Because of the severe dizziness, he presented to the emergency room for evaluation. In the ER, the patient was identified to be in rapid atrial fibrillation. He denies any significant palpitations. No chest pain, no shortness of breath. No recent long distance travel. The only thing out of the ordinary is that the patient had cauterization of some vessels within his nose due to recurrent nosebleeds and has been on prednisone for the last 10 days or so. PAST MEDICAL HISTORY: 1. Hypertension. 2. Hyperlipidemia. 3. Thyroid nodules. PAST SURGICAL HISTORY: 1. Bilateral hip replacements. 2. Nasal polyp surgery. MEDICATIONS: 1. Lisinopril 20 mg p.o. daily. 2. Amlodipine 10 mg p.o. daily. 3. Simvastatin 20 mg p.o. daily. 4. Benadryl 25 mg p.o. q.h.s. p.r.n. insomnia. ALLERGIES: No known drug allergies. FAMILY HISTORY: Mom at the age of 84 of Alzheimer's. Dad also at the age of 84; he had Parkinson's. SOCIAL HISTORY: The patient is a lifelong nonsmoker. He drinks alcohol on occasion. He did not drink the night prior to this admission. He worked for [employer] previously. He is . He has 2 children. He indicates that his is his healthcare proxy. REVIEW OF SYSTEMS: A complete 11-system review of systems was obtained, pertinent positives and negatives are as per HPI and otherwise negative. PHYSICAL EXAMINATION GENERAL: The patient is a well-developed, elderly male seen lying in the bed, in no acute distress. VITAL SIGNS: Blood pressure 107/71, pulse 117, respirations 18, temp 98, O2 sat 93% on room air. HEENT: Pupils are equal and round. Extraocular muscles are intact. Oropharynx is clear. Oral mucosa is moist. NECK: There is no submandibular, cervical, or supraclavicular adenopathy. PULMONARY: Lungs are clear to auscultation bilaterally. CARDIAC: Normal S1, S2. Heart rate is irregularly irregular and tachycardic. There is no lower extremity edema. ABDOMEN: Bowel sounds are present. Abdomen is soft, nontender, and nondistended. MUSCULOSKELETAL: There is no cyanosis or clubbing of the digits. There is full active range of motion of all 4 extremities. NEURO: Cranial nerves II through XII are grossly intact. Sensation is intact to light touch throughout. Strength is 5/5 and symmetric in both upper and lower extremities bilaterally. PSYCH: The patient is alert. He is oriented x3. Affect appears appropriate. SKIN: Warm and dry. There are no rashes. DIAGNOSTIC STUDIES/LAB DATA: WBC 11.2, hemoglobin 13.3, hematocrit 40, platelets 311. Sodium 137, potassium 4.3, chloride 105, CO2 of 25, BUN 21, creatinine 0.76, glucose 129, lactic acid 1.6, calcium 8.9, magnesium 2.2. Bilirubin 0.4, AST 12, ALT 13, alk phos 77. Troponin 0.01. CRP 2.97. BNP 351. Albumin 3.7. TSH 0.64. EKG reveals atrial fibrillation with rapid ventricular response. Chest x-ray: Low lung volumes, small basilar infiltrates suggestive of atelectasis similar to the prior study. CT brain: No acute intracranial pathology. ASSESSMENT AND PLAN: Mr. Gordon is an 82-year-old male with history of hypertension, hyperlipidemia, and thyroid nodules, who presents to the emergency room with complaints of severe dizziness and is found to be in rapid atrial fibrillation. 1. Rapid atrial fibrillation. The patient very clearly was able to identify the time of onset of his atrial fibrillation due to becoming symptomatic with dizziness. He, at this point, denies any chest pain. He has already had his echocardiogram. The patient is being started on a diltiazem drip. After some time on the diltiazem drip, we will likely convert over to oral diltiazem or beta- melanie therapy. Additionally, the patient, his and I have discussed stroke risk with atrial fibrillation. His CHADS2-VASc score is 2. The patient is in agreement with going on Eliquis. The patient states that he has some familiarity with this condition and medication as his has a history of atrial fibrillation and is also on Eliquis. If the patient has difficult to control his heart rate or there are any concerning features on echocardiogram, we will ask for Cardiology consultation. 2. Hypertension. The patient's amlodipine will be held for now. I will continue his usual dose of lisinopril. We will monitor his blood pressure and as needed, we will make adjustments to his antihypertensive regimen. 3. Hyperlipidemia. We will continue statin. 4. DVT prophylaxis. According to the Adult Thrombosis Prophylaxis Risk Factor Assessment Guide, the patient has a total risk factor score of 4 making him high risk. He is already going to be started on Eliquis and this will act as a DVT prophylaxis. 5. Code status is full. TIME SPENT: Sixty-five minutes was spent admitting this patient of which greater than half was spent [id number] with the patient and his reviewing history and performing a physical exam. [id number]/[facility] #: [id number] YOBANI
--- NOTE | 2018-05-09 20:51 | ECHO ---
Patient: MARK PARK [facility] Rec#: [id number] : 1935 Date: 05/09/2018 Age: 82y Height: 182.9 cm / 72.0 in Weight: 104.3 kg / 229.9 lbs Sex: M BSA: 2.3 Room#: [facility] Admit Date#: 05/09/2018 Type: Inpatient Referring: Micki Asencio DO Reading: Joanna Davis MD Passport Support Associate: Kaela Solis RN RDCS CC: Hang Pringle MD Transthoracic Echocardiogram Indication: Abnormal EKG, Atrial fibrillation BP: 111/69 HR: 122 Rhythm: A-Fib Findings History: HTN, HLD, RBBB, obesity Technical Comments: The study is technically limited due to poor apical windows. The study is technically limited due to patient body habitus. Completed at 1515. Left Ventricle: The left ventricular chamber size is decreased. Mild to moderate concentric left ventricular hypertrophy is observed. Global left ventricular wall motion and contractility are within normal limits. There is normal left ventricular systolic function. The estimated ejection fraction is 60-65%. The assessment of diastolic function is non-diagnostic. Left Atrium: The left atrial chamber size is normal. Right Ventricle: The right ventricular cavity size is normal. The right ventricular global systolic function is low normal. Right Atrium: The right atrial cavity size is normal. Aortic Valve: The aortic valve is trileaflet. The aortic valve leaflets are mildly thickened. There is mild aortic regurgitation. There is no evidence of aortic stenosis. Mitral Valve: The mitral valve leaflets are mildly thickened. There is a trace of mitral regurgitation. There is no evidence of mitral stenosis. Tricuspid Valve: The tricuspid valve leaflets are normal. There is mild tricuspid regurgitation. The right ventricular systolic pressure is estimated at 27 mmHg. No pulmonary hypertension is noted. There is no tricuspid stenosis. Pulmonic Valve: The pulmonic valve appears normal. There is trace to mild pulmonic regurgitation. There is no pulmonic stenosis. Pericardium: There is no significant pericardial effusion. A pericardial fat pad is visualized. Aorta: There is moderate dilatation of the ascending aorta. There is mild dilatation of the aortic arch. There is no dilation of the aortic root. Pulmonary Artery: The main pulmonary artery appears normal. Venous: The inferior vena cava appears normal in size. There is an approximate 50% respiratory change in the inferior vena cava dimension. Contrast: Definity was used to optimize study. A total of 4 ml of diluted Definity was given IV. Conclusions Mild to moderate concentric left ventricular hypertrophy 1.3-1.5 cm. Global left ventricular wall motion and contractility are within normal limits. The estimated ejection fraction is 60-65%. The right ventricular global systolic function is low normal. The aortic valve is trileaflet, mild sclerosis, normal excursion with mild aortic regurgitation. There is a trace of mitral regurgitation. There is mild tricuspid regurgitation. The right ventricular systolic pressure is estimated at 27 mmHg. There is moderate dilatation of the ascending aorta: 4.1 cm. There is mild dilatation of the aortic arch: 3.5 cm. No prior echo to compare. Measurements Name Value Normal Range RVDdMajor (2D) 2.9 cm (2.2 - 4.4) RAd ISD 4CH 4.5 cm (3.4 - 4.9) RA (A4C)W 3.9 cm (2.9 - 4.6) IVSd (2D) 1.5 cm (0.6 - 1) LVPWd (2D) 1.3 cm (0.6 - 1) LVIDd (2D) 3.3 cm (3.6 - 5.4) LVIDs (2D) 2.5 cm - LV FS (2D) 24 % (25 - 45) Aortic Annulus 2.2 cm (1.4 - 2.6) Ao root diameter (2D) 3.3 cm (2.1 - 3.5) Ascending Ao 4.1 cm (2.1 - 3.4) Aortic arch 3.5 cm (1.8 - 3.4) LA dimension (AP) 2D 3.7 cm (2.3 - 3.8) LAd ISD 4CH 5 cm (2.9 - 5.3) LA ISD 4CH W 4.6 cm (2.5 - 4.5) Name Value Normal Range LA ESV SP 4CH (A/L) 65 ml - LA ESV SP 2CH (A/L) 53 ml - LA ESV BP (A/L) 64 ml - LA ESV BP (A/L) index 28.2 ml/m2 - LA ESV SP 4CH (MOD) 63 ml - LA ESV SP 2CH (MOD) 49 ml - Name Value Normal Range MV E-wave Vmax 1 m/sec - MV deceleration time 193 msec - LV septal e' Vmax 0.1 m/sec - LV lateral e' Vmax 0.1 m/sec - LV E:e' septal ratio 10 ratio - LV E:e' lateral ratio 10 ratio - Name Value Normal Range AV Vmax 1.5 m/sec - AV VTI 26.7 cm - AV peak gradient 9.4 mmHg - AV mean gradient 5 mmHg - LVOT Vmax 1 m/sec - LVOT VTI 20 cm - LVOT peak gradient 4.3 mmHg - LVOT mean gradient 2.4 mmHg - JOAO Vmax 0.46 m/sec - Name Value Normal Range TR Vmax 2.2 m/sec - TR peak gradient 19 mmHg - RAP 8 mmHg - RVSP 27 mmHg - IVC diameter 1.8 cm - Name Value Normal Range PV Vmax 0.89 m/sec -
[2018-05-10] MEDS: diPHENhydraMINE PO* 25 MG PO PRN (00:32)
[2018-05-10] MEDS: NS 0.9% 1000 ML* 1,000 ML IV SCH (01:42)
[2018-05-10] MEDS ORDERED: Diltiazem DRIP* 100 MG/100 ML ADDV.BAG IVPB SCH (08:00)
[2018-05-10] MEDS ORDERED: Lisinopril TAB* 10 MG PO SCH ×2 (09:00)
[2018-05-10] MEDS ORDERED: amLODIPine TAB* 5 MG PO SCH (09:00)
[2018-05-10] MEDS ORDERED: Atorvastatin* 10 MG TAB PO SCH ×2 (09:00→21:00)
[2018-05-10] MEDS ORDERED: Digoxin IV* 0.5 MG/2 ML AMP (0.25 MG/ML) IV SLOW PU ONE (10:01)
[2018-05-10] MEDS ORDERED: Metoprolol Tartrate IV* 1 MG/ML 5 ML VIAL IV ONE (10:01)
[2018-05-10] MEDS: Apixaban* 5 MG TAB PO SCH ×2 (10:54→20:40)
--- NOTE | 2018-05-10 11:33 | PN ---
Subjective Date of Service: 05/10/18 Interval History: Pt is feeling well. No c/o CP, SOB, dizziness or pain. No other issues per the patient. He is awaiting FRANCA guided cardioversion. Objective Active Medications: Apixaban (Eliquis*) 5 mg PO BID [facility] Last Admin: 05/10/18 10:54 Dose: 5 mg Atorvastatin Calcium (Lipitor*) 10 mg PO DAILY [facility] Diphenhydramine HCl (Benadryl Po*) 25 mg PO BEDTIME PRN PRN Reason: SLEEP Last Admin: 05/10/18 00:32 Dose: 25 mg Sodium Chloride (Ns 0.9% 1000 Ml*) 1,000 mls @ 75 mls/hr IV PER RATE [facility] Last Admin: 05/10/18 01:42 Dose: 75 mls/hr Diltiazem HCl (Cardizem Iv Advan*) 100 mg in 100 mls @ 5 mls/hr IVPB .PER PARAMETERS [facility]; Protocol Vital Signs - 8 hr 05/10/18 05/10/18 05/10/18 03:28 04:00 04:02 Temperature 98.3 F Pulse Rate 54 Respiratory 16 14 Rate Blood Pressure (mmHg) O2 Sat by Pulse 96 Oximetry 05/10/18 05/10/18 05/10/18 04:27 05:00 05:09 Temperature Pulse Rate 67 75 84 Respiratory Rate Blood Pressure 108/63 107/54 (mmHg) O2 Sat by Pulse 98 92 96 Oximetry 05/10/18 05/10/18 05/10/18 06:00 07:00 07:09 Temperature Pulse Rate 59 85 73 Respiratory Rate Blood Pressure 95/71 (mmHg) O2 Sat by Pulse 92 94 94 Oximetry 05/10/18 08:42 Temperature 98.0 F Pulse Rate Respiratory Rate Blood Pressure (mmHg) O2 Sat by Pulse Oximetry Oxygen Devices in Use Now: None Appearance: Elderly male sitting up in bed, NAD Eyes: No Scleral Icterus Ears/Nose/Mouth/Throat: Mucous Membranes Moist Respiratory: Symmetrical Chest Expansion and Respiratory Effort, Clear to Auscultation Cardiovascular: NL Sounds; No Murmurs; No JVD, - - irregularly irregular Abdominal: NL Sounds; No Tenderness; No Distention Extremities: No Clubbing, Cyanosis Skin: No Nodules or Sclerosis Neurological: Alert and Oriented x 3 Result Diagrams: 05/09/18 11:01 05/09/18 11:01 Assess/Plan/Problems-Billing Mr Gordon is an 82 yo M who has a h/o HTN and HLD who presented to the ER with c /o dizziness and was found to be in rapid afib. - Patient Problems (1) Atrial fibrillation with RVR Current Visit: Yes Status: Acute Code(s): I48.91 - UNSPECIFIED ATRIAL FIBRILLATION SNOMED Code(s): 190869002320031 Comment: The patient remains in rapid afib. Dr. Bright consulted this AM. Plan for cardioversion this afternoon. Pt has agreed to initiating elquis. Await further recommendations post cardioversion. (2) HTN (hypertension) Current Visit: Yes Status: Acute Code(s): I10 - ESSENTIAL (PRIMARY) HYPERTENSION SNOMED Code(s): 79868017 Comment: BP soft on diltiazem drip. He is asymptomatic. Monitor BP. (3) DVT prophylaxis Current Visit: Yes Status: Acute Code(s): WST0870 - SNOMED Code(s): 391621221 Comment: Anisa (4) Full code status Current Visit: Yes Status: Acute Code(s): Z78.9 - OTHER SPECIFIED HEALTH STATUS SNOMED Code(s): 255764674
[2018-05-10 11:38] LABS: INR 1.03 (0.77-1.02)
[2018-05-10] MEDS ORDERED: Midazolam* 1 MG/ML 10 ML VIAL (10 MG) ONE (12:33)
[2018-05-10] MEDS ORDERED: Naloxone* 0.4 MG/ML 1 ML VIAL ONE (12:33)
[2018-05-10] MEDS ORDERED: fentaNYL* 50 MCG/ML 2 ML VIAL (100 MCG VIAL) ONE (12:33)
[2018-05-10] MEDS ORDERED: Flumazenil* 0.1 MG/ML 5 ML MDV ONE (12:34)
[2018-05-10] MEDS ORDERED: Lidocaine 2% VISCOUS* 15 ML UDC ONE (12:34)
--- NOTE | 2018-05-10 13:59 | CONS ---
CC: Dr. Pringle CARDIOLOGY CONSULTATION REPORT: DATE OF CONSULT: 05/10/18 REASON FOR EVALUATION: Atrial fibrillation. PATIENT OF: Dr. Pringle. HISTORY OF PRESENT ILLNESS: This is a very pleasant 82-year-old gentleman who has a history of hypertension, hyperlipidemia, possible sleep apnea, and obesity. He was in his usual state of health until yesterday. He said he got up and went to the bathroom around 7:30 a.m. When he tried to stand up from toilet, he noticed he was momentarily lightheaded for a few seconds. He then got dressed, went out, took some air in. When trying to get out of the car at one of his errands, he noticed that again he was lightheaded for a few moments. Because of those symptoms, he decided to go to the emergency room. He was not aware of any chest pain, shortness of breath, syncope or near syncope, palpitations other than the 2 lightheaded spells. In the ER, he was found to be in atrial fibrillation with rapid ventricular response. He denies previous history of atrial fibrillation. He does have hypertension, hyperlipidemia, and his says he snores and has noticed he has been more sleepy during the day the last few months. He does not exercise regularly. He does climb a flight of stairs to his basement and goes back and forth to his basement office occasionally without shortness of breath. He does not exercise regularly. He denies any strokes, mini strokes, rheumatic heart disease, or murmurs. After admission, he was started on IV diltiazem and has had only mild improvement in his heart rates, which had been ranging in 90s to 130s. PAST MEDICAL HISTORY: Includes hypertension, diagnosed 3 to 4 years ago, treated with amlodipine and lisinopril with blood pressures less than 130. history of hyperlipidemia, treated with simvastatin for 15 years. right bundle branch block from young adulthood history of obesity. He denies strokes, mini stroke, rheumatic heart disease. PAST SURGICAL HISTORY: Includes 2 hip replacements. MEDICATIONS: His outpatient medications include: 1. Benadryl p.r.n. 2. Simvastatin 20 mg a day. 3. Amlodipine 10 a day. 4. Lisinopril 20 mg a day. As an inpatient: 1. He was supposed to start Eliquis, was waiting to our consultation, 5 mg b.i.d. 2. Atorvastatin 10 mg a day. 2. Lisinopril 20 mg a day. 4. IV diltiazem 5 mg an hour. ALLERGIES: He denies any allergies. FAMILY HISTORY: Includes his sister is alive and well. Mother who at 84 of Alzheimer's and father who at 84. No family history of premature coronary artery disease. SOCIAL HISTORY: He is , accompanied by his , has 2 children, a son and a daughter. He is retired from [employer] in [place]. He drinks 1 large mug of half-caffeinated coffee a day. He has approximately 1 beer or mixed drink every 2 weeks. REVIEW OF SYSTEMS: Review of systems x10 was negative except as above. PHYSICAL EXAM: He is a well-developed, well-nourished, obese gentleman, in no apparent distress. Weight 238 pounds, blood pressure 95/71 to 107/54 with heart rates 96 to 130 approximately, irregular. No significant JVD. Carotids are 2+ without bruits. No cervical adenopathy or thyromegaly. Extraocular muscles intact. Sclerae anicteric. Cardiac Exam: S1, S2. No clear murmurs, gallops, or rubs. Irregular. Chest was clear. No CVAT. Abdomen: Obese. Bowel sounds present. No hepatosplenomegaly. Femoral pulses are intact without bruits. Distal pulses intact, no edema. Motor strength 5/5 bilaterally. Deep tendon reflexes 1/4 bilaterally. Alert and oriented x3. DIAGNOSTIC STUDIES/LAB DATA: Labs include white count of 11.2, hemoglobin of 13.3, hematocrit of 40, platelet count of 311. Sodium 137, potassium 4.3, BUN of 21, creatinine of 0.76. His BNP was mildly elevated at 351. TSH was normal. Magnesium of 2.2. Troponin of 0.01. EKG revealed AFib with right bundle branch block. His previous EKG from 2015 revealed sinus rhythm with right bundle branch block. Chest x-ray without acute changes. His echocardiogram from yesterday revealed [id number], EF of 60% to 65 %, low normal RV function, mild AI, trace MR, mild TR, PA pressure of 27, moderate dilatation of ascending aorta of 4.1, mild dilatation in the arch at 3.5, no prior echo. IMPRESSION AND PLAN: My impression is that Mr. Gordon appears to have developed atrial fibrillation with symptoms of mild lightheadedness of unclear etiology perhaps due to the rapid rate, relative hypotension, or decreased cardiac output. I did discuss at length with him and his the nature of the illness and the potential therapeutic options. He also is planning a trip to [place] to leave tomorrow. We discussed options of conservative management with rate control versus an attempted cardioversion and the potential for recurrent atrial fibrillation in the near term and long-term. Given his symptomatic atrial fibrillation and lack of adequate rate control and medical therapy, I recommend the followin. I suggested the continued attempt of rate control with the addition of digoxin and low-dose beta melanie. Given his low blood pressures, we will have to be cautious with this. 2. I suggested an attempt of FRANCA-guided cardioversion to try to facilitate conversion back to sinus rhythm if he fails to convert today. He understands the potential for recurrent AFib and the potential need for further rate control or antiarrhythmics depending on his clinical response. 3. I have suggested that he avoid caffeine and seek further evaluation and treatment for possible sleep apnea. 4. I also suggest he reduce his weight. 5. He is to have overnight pulse oximetry to screen for hypoxemia. 6. I would discontinue lisinopril and amlodipine at this point in time. We may need to replace that with rate control agents, perhaps beta-melanie with diltiazem. 7. I recommended anticoagulation given his CHADS2-VASc score of 3. We discussed the risks and benefits. He understands and agrees to proceed. 8. We discussed the potential for recurrent AFib and destabilization while traveling especially, on the transatlantic flight and during his touring in [place]. Therefore, I recommended he delay his trip and reschedule the time when his medical condition has been better evaluated and stabilized. [id number]/[facility] #: [id number] YOBANI
--- NOTE | 2018-05-10 17:25 | CARD ---
CARDIOLOGY PROCEDURE NOTE: DATE OF PROCEDURE: 05/10/18 - ROOM #444 REASON FOR PROCEDURE: Atrial fibrillation, cardioversion. INDICATION: This is a very pleasant 82-year-old gentleman with recently noted dizziness and was found to be in a rapid atrial fibrillation. He was started on anticoagulation. He was in the fasting state. Informed consent was obtained with him and his and he was brought to the procedure room for an attempted FRANCA-guided cardioversion. He was premedicated with 4 mg of Versed and 25 mcg of fentanyl for the FRANCA. The FRANCA revealed no evidence of intracardiac thrombus. A subsequent additional 2 mg of Versed and 25 mcg of fentanyl was given prior to cardioversion. A single synchronized biphasic shock of 120 joules was delivered with successful conversion to sinus bradycardia in the 50s. His diltiazem was discontinued. IMPRESSION: Successful cardioversion from atrial fibrillation to sinus bradycardia. The results were discussed with his and we will continue to observe him for several hours and they understand that he require further adjustments of his medications and his risk for recurrent atrial fibrillation. He was also noted to have snoring and some hypoxemia at times with snoring. I have recommended that he have an evaluation for sleep apnea. [id number]/[facility] #: [id number] YOBANI
[2018-05-11] MEDS: diPHENhydraMINE PO* 25 MG PO PRN (02:16)
[2018-05-11] MEDS: Apixaban* 5 MG TAB PO SCH (08:33)
[2018-05-11 09:58] LABS: ABS Basophils 0.1 10^3/ul (0-0.2); ABS Eosinophils 0.4 10^3/ul (0-0.6); ABS Lymphocytes 1.1 10^3/ul (1.0-4.8); ABS Monocytes 0.6 10^3/ul (0-0.8); ABS Neutrophils 6.5 10^3/ul (1.5-7.7); ABS Nucleated RBC 0 10^3/ul; Eosinophil % 4.8 % (0-6); Hematocrit 40 % (42-52); Hemoglobin 13.1 g/dl (14.0-18.0); Mean Corpuscular HGB Conc 33 g/dl (31-36); Mean Corpuscular Hemoglobin 33 pg (27-31); Mean Corpuscular Volume 98 fL (80-94); Mean Platelet Volume 7.2 um3 (7.4-10.4); Nucleated Red Blood Cells % 0; Platelet Count 272 10^3/ul (150-450); Red Blood Count 4.04 10^6/ul (4.00-5.40); Red Cell Distribution Width 14 % (10.5-15); White Blood Count 8.8 10^3/ul (3.5-10.8)
[2018-05-11] MEDS ORDERED: Diltiazem CD CAP* 120 MG PO SCH (10:00)
[2018-05-11 10:08] LABS: EGFR Non-African American 98.7 (>60)
[2018-05-11 11:23] VITALS: BP 123/74
--- NOTE | 2018-05-14 03:49 | DS ---
CC: Dr. Pringle; Dr. Headley; Dr. Bright.* DISCHARGE SUMMARY: DATE OF ADMISSION: 05/09/18 DATE OF DISCHARGE: 05/11/18 PRIMARY CARE PROVIDER: Dr. Pringle [facility] PRIMARY CARE PROVIDER: Dr. Mitchel Headley in [place], [place]. 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 Bright. PRINCIPAL DIAGNOSES: 1. Atrial fibrillation with rapid ventricular response. 2. Hypertension. 3. Hyperlipidemia. DISCHARGE MEDICATIONS: 1. Benadryl 25 mg p.o. q.h.s. p.r.n. insomnia. 2. Diltiazem CD 120 mg p.o. daily (new). 3. Eliquis 5 mg p.o. b.i.d. (new). 4. Atorvastatin 10 mg p.o. q.h.s. (new). Discontinued medications: 1. Lisinopril. 2. Amlodipine. 3. Simvastatin. HOSPITAL COURSE: Mr. Gordon is an 82-year-old male who had a sudden onset of dizziness on the morning of admission. When he ultimately presented to the emergency room, he was found to be in rapid atrial fibrillation. The patient was admitted and started on diltiazem drip. Despite remaining on the drip overnight he did not convert to sinus rhythm by the morning of 05/10/18. Because of this cardiology consultation was requested. The patient spoke with Dr. Bright on the morning of 05/10/18, at which time an attempt with digoxin and metoprolol was made to slow the heart rate down, however, this was unsuccessful. The patient then underwent FRANCA guided cardioversion. The patient was also recommended to get an evaluation for sleep apnea. He underwent a nocturnal desaturation study, which did not reveal any significant hypoxia. The patient ultimately agreed to going on Eliquis. On the afternoon of 05/10/18 the patient underwent FRANCA guided cardioversion. His EF was estimated to be 55 to 60%. There was evidence of left ventricular septal wall motion abnormality possibly due to the presence of the right bundle branch block. No thrombus was visualized within the left atrium or left atrial appendage. The right ventricular global systolic function was noted to be mildly reduced. A PFO was not demonstrated. The patient was successfully cardioverted to normal sinus rhythm. It was Dr. Bright's recommendation to discontinue amlodipine and lisinopril and utilize diltiazem CD 120 mg for both rate and blood pressure control. With this patient's heart rate has been under control and his blood pressure has also been controlled. The patient will continue on Eliquis. Due to the potential interaction between simvastatin and diltiazem the patient's statin was changed to Lipitor. Of note, the patient was supposed to leave today for a flight to [place]. It was recommended that he delay the trip for some period of time and the patient agreed to this. On the day of discharge, the patient is awake, alert, oriented, sitting up in bed, in no acute distress. His heart rate on telemetry is in sinus rhythm with a rate in the 70s. His blood pressure is stable. He is afebrile. His cardiac exam reveals normal S1, S2 with regular rate and rhythm. There is no lower extremity edema. Lungs are clear bilaterally. Abdomen is soft, nontender, nondistended. FOLLOWUP CONCERNS: The patient is being discharged home today 05/11/18. The patient is to follow up with Dr. Pringle in the next 4 to [address] Bright in the next 1 to 2 weeks. The patient would prefer to schedule his own appointments. ACTIVITY LEVEL: As tolerated. DIET: Heart healthy. CONDITION ON DISCHARGE: Stable. TIME SPENT: 35 minutes was spent discharging this patient. [id number]/[facility] #: [id number] MTDD
== END 2018-05-11 12:28 | disposition home or self-care (01) | DRG 310 ==
LOC: ED 10:32 → MEDTELE 11:59 → OBSVTOIN 05-10 16:25
PROVIDERS: ADMIT Hospitalist; ATTEND Hospitalist
PROC: B24BZZ4 Ultrasonography of Heart with Aorta, Transesophageal (ICD-10-PCS; 2018-05-10)
PROC: 5A2204Z Restoration of Cardiac Rhythm, Single (ICD-10-PCS; principal; 2018-05-10 12:00)
DX: I48.91 Unspecified atrial fibrillation (principal); I10 Essential (primary) hypertension; Z96.643 Presence of artificial hip joint, bilateral; I45.10 Unspecified right bundle-branch block; E66.9 Obesity, unspecified; E04.2 Nontoxic multinodular goiter; E78.5 Hyperlipidemia, unspecified; I08.3 Combined rheumatic disorders of mitral, aortic and tricuspid valves; I77.819 Aortic ectasia, unspecified site; Z80.49 Family history of malignant neoplasm of other genital organs; Z82.0 Family history of epilepsy and other diseases of the nervous system; Z72.89 Other problems related to lifestyle; Z68.32 Body mass index [BMI] 32.0-32.9, adult; Z79.01 Long term (current) use of anticoagulants
CPT/HCPCS: 36415; 70450; 71046; 80053; 83605; 83735; 83880; 84443; 84484; 85025; 85379; 85610; 86140; 92960; 93005; 93306; 93312; 93325; 94762; 99156; 99157; 99284; A9270-GY; C8929; G0378; J1160; J2250; J2310; J3010; J3490